=== PATIENT | male | born 1990 | race Two or more races ===

== ENCOUNTER 2016-04-16 21:29 | Emergency (ER) | payer SELFPAY ==
--- NOTE | 2016-04-17 07:34 | RAD ---
History: Chest pain. Comparison: None. Technique: 2 views Findings: The soft tissue and bony structures are unremarkable. The heart size is appropriate. No infiltrate, effusion or pneumothorax is observed. The hilar and mediastinal structures are normal. Impression: 1. A negative 2 view chest
== END 2016-04-17 02:12 | disposition home or self-care (01) ==
LOC: ED 21:29
DX: J06.9 Acute upper respiratory infection, unspecified (principal); R09.1 Pleurisy; R07.9 Chest pain, unspecified; F17.210 Nicotine dependence, cigarettes, uncomplicated